=== PATIENT | male | born 1975 | race Caucasian/White ===

== ENCOUNTER 2018-08-29 15:34 | Emergency (ER) | payer OTHER | END 2018-08-29 16:31 | disposition home or self-care (01) | LOC: FTE 16:31 | DX: M54.2 Cervicalgia (principal); Z87.891 Personal history of nicotine dependence | CPT/HCPCS: 99283; Z7502 ==

== ENCOUNTER 2018-11-28 23:48 | Emergency (ER) | payer OTHER ==
[2018-11-29] MEDS: LIDOCAINE 1% (MDV) 20 ML INJ SC (03:00)
[2018-11-29] MEDS: DIPHTH/TET/ACEL PERTUSS (ADULT) 0.5 ML VIAL IM* (04:08)
[2018-11-29] MEDS: IBUPROFEN 600 MG TAB PO (04:12)
== END 2018-11-29 04:20 | disposition home or self-care (01) ==
LOC: FTE 23:48
DX: S61.102A Unspecified open wound of left thumb with damage to nail, initial encounter (principal); F17.210 Nicotine dependence, cigarettes, uncomplicated; R40.2412 Glasgow coma scale score 13-15, at arrival to emergency department; W26.8XXA Contact with other sharp object(s), not elsewhere classified, initial encounter; Y92.9 Unspecified place or not applicable; Z23 Encounter for immunization
CPT/HCPCS: 12002; 90471; 90715; 99283-25